=== PATIENT | female | born 1985 | race African-American/Black ===

== ENCOUNTER 2019-03-14 07:19 | Inpatient (IN) | payer OTHER ==
[2019-03-14] MEDS: HYDROmorphONE 2 MG/ML SYG IV (08:07)
[2019-03-14] MEDS: ALPRAZOLAM 1 MG TAB PO ×2 (08:07→15:50)
[2019-03-14 08:49] LABS: PARTIAL THROMBOPLASTIN TIME 44.5 Sec (23.0-35.0)
[2019-03-14 10:36] LABS: ADD MAN DIFF? NO
[2019-03-14 10:41] LABS: WHITE BLOOD COUNT 8.1 10^3/ul (4.8-10.8)
[2019-03-14 10:41] LABS: BASOPHILS % 0.5 % (0.0-2.0); EOSINOPHILS # 0.1 10^3/ul (0.0-0.5); EOSINOPHILS % 1.2 % (0.0-7.0); HEMATOCRIT 32.4 % (37.0-47.0); HEMOGLOBIN 10.3 g/dl (12.0-16.0); LYMPHOCYTES # 2.7 10^3/ul (0.8-2.9); LYMPHOCYTES % 32.8 % (15.0-51.0); MEAN CORPUSCULAR HEMOGLOBIN 28.1 pg (29.0-33.0); MEAN CORPUSCULAR HGB CONC 31.8 g/dl (32.0-37.0); MEAN CORPUSCULAR VOLUME 88.5 fl (82.0-101.0); MEAN PLATELET VOLUME 9.2 fl (7.4-10.4); MONOCYTE # 0.8 10^3/ul (0.3-0.9); MONOCYTES % 9.7 % (0.0-11.0); NEUTROPHIL # 4.5 10^3/ul (1.6-7.5); NEUTROPHILS % 55.6 % (39.0-77.0); PLATELET COUNT 270 10^3/UL (140-415); RED BLOOD COUNT 3.66 10^6/ul (4.20-5.40); RED CELL DISTRIBUTION WIDTH 14.7 % (11.5-14.5)
[2019-03-14] MEDS: morphine 2 MG INJ IV ×2 (11:43→20:20)
[2019-03-14 11:49] LABS: INR 0.95; PROTIME 12.8 Sec (11.9-14.9)
[2019-03-14 11:50] LABS: PARTIAL THROMBOPLASTIN TIME 36.5 Sec (23.0-35.0)
[2019-03-14] MEDS: HEPARIN 1000 UNITS/ML 10 ML INJ IV ×2 (12:07→19:11)
[2019-03-14] MEDS: HYDROmorphONE 1 MG/ML SYG IV (13:58)
[2019-03-14] MEDS ORDERED: BISACODYL 10 MG SUPP PR (14:00)
[2019-03-14] MEDS ORDERED: DOCUSATE SODIUM 100 MG CAP PO (14:00)
[2019-03-14] MEDS ORDERED: HYDROCODONE/APAP (5/325) TAB PO (14:00)
[2019-03-14] MEDS ORDERED: MAGNESIUM HYDROXIDE 30ML CUP PO (14:00)
[2019-03-14] MEDS: CEFAZOLIN 2 GM/50 ML (PMX) 50 ML IVPB ×2 (14:21→23:18)
[2019-03-14] MEDS: HEPARIN 25000 UNITS/250 ML 250 ML IV (14:40)
[2019-03-14] MEDS: HYDROCODONE/APAP (5/325) TAB PO ×2 (15:50→21:43)
[2019-03-14 17:10] LABS: ERYTHROCYTE SEDIMENTATION RATE 60 mm/Hr (0-20)
[2019-03-14 17:23] LABS: PARTIAL THROMBOPLASTIN TIME > 180.0 Sec (23.0-35.0)
[2019-03-14 18:05] LABS: PARTIAL THROMBOPLASTIN TIME 54.9 Sec (23.0-35.0)
[2019-03-14] MEDS: HYDROmorphONE 0.5 MG/0.5 ML SYG IV ×2 (18:49→22:51)
[2019-03-15 01:12] LABS: PARTIAL THROMBOPLASTIN TIME 91.8 Sec (23.0-35.0)
[2019-03-15] MEDS: CEFAZOLIN 2 GM/50 ML (PMX) 50 ML IVPB ×3 (05:18→21:02)
[2019-03-15] MEDS: PANTOPRAZOLE 40 MG INJ IV (05:19)
[2019-03-15] MEDS: HYDROmorphONE 0.5 MG/0.5 ML SYG IV ×4 (06:07→19:44)
[2019-03-15] MEDS: HEPARIN 25000 UNITS/250 ML 250 ML IV (06:25)
[2019-03-15] MEDS: HYDROCODONE/APAP (5/325) TAB PO ×2 (06:43→21:03)
[2019-03-15 06:46] LABS: ADD MAN DIFF? NO
[2019-03-15 06:49] LABS: WHITE BLOOD COUNT 7.5 10^3/ul (4.8-10.8)
[2019-03-15 06:49] LABS: BASOPHILS % 0.4 % (0.0-2.0); EOSINOPHILS # 0.1 10^3/ul (0.0-0.5); EOSINOPHILS % 1.6 % (0.0-7.0); HEMATOCRIT 31.1 % (37.0-47.0); HEMOGLOBIN 9.8 g/dl (12.0-16.0); LYMPHOCYTES # 1.9 10^3/ul (0.8-2.9); MEAN CORPUSCULAR HEMOGLOBIN 27.9 pg (29.0-33.0); MEAN CORPUSCULAR HGB CONC 31.5 g/dl (32.0-37.0); MEAN CORPUSCULAR VOLUME 88.6 fl (82.0-101.0); MEAN PLATELET VOLUME 9.8 fl (7.4-10.4); MONOCYTE # 0.6 10^3/ul (0.3-0.9); MONOCYTES % 7.9 % (0.0-11.0); NEUTROPHIL # 4.8 10^3/ul (1.6-7.5); NEUTROPHILS % 63.8 % (39.0-77.0); PLATELET COUNT 292 10^3/UL (140-415); RED BLOOD COUNT 3.51 10^6/ul (4.20-5.40); RED CELL DISTRIBUTION WIDTH 14.8 % (11.5-14.5)
[2019-03-15 07:00] LABS: HEMOGLOBIN A1C 4.9 % (0-5.9)
[2019-03-15 07:11] LABS: ALANINE AMINOTRANSFERASE 21 IU/L (13-69); ALBUMIN 3.2 g/dl (3.3-4.9); ALBUMIN/GLOBULIN RATIO 0.91; ALKALINE PHOSPHATASE 125 IU/L (42-121); ANION GAP 7 (5-13); ASPARTATE AMINO TRANSFERASE 41 IU/L (15-46); BILIRUBIN,INDIRECT 0.3 mg/dl (0-1.1); BILIRUBIN,TOTAL 0.3 mg/dl (0.2-1.3); BLOOD UREA NITROGEN 13 mg/dl (7-20); CALCIUM 8.8 mg/dl (8.4-10.2); CARBON DIOXIDE 28 mmol/L (21-31); CHLORIDE 104 mmol/L (97-110); CHOL/HDL RATIO 3.8 RATIO; CHOLESTEROL 179 mg/dl (100-200); CREATININE 0.47 mg/dl (0.44-1.00); Estimated GFR > 60 mL/min (>60); GLUCOSE 100 mg/dl (70-220); HDL CHOLESTEROL 47 mg/dl (34-82); LDL CHOLESTEROL,CALCULATED 115 mg/dl; MAGNESIUM 1.8 mg/dl (1.7-2.5); POTASSIUM 4.2 mmol/L (3.5-5.1); SODIUM 139 mmol/L (135-144); TOTAL PROTEIN 6.7 g/dl (6.1-8.1); TRIGLYCERIDES 84 mg/dl (0-149)
[2019-03-15 07:28] LABS: FREE THYROXINE INDEX (Calc) 3.65 ug/ml (0.65-3.89); T3 UPTAKE 39.7 % (23.5-40.5); T4 (THYROXINE) 9.2 ug/dl (5.5-11.0)
[2019-03-15] MEDS: ALPRAZOLAM 1 MG TAB PO ×2 (07:38→21:51)
[2019-03-15 07:41] LABS: THYROID STIMULATING HORMONE 0.733 MIU/L (0.465-4.680)
[2019-03-15 12:52] LABS: AMPHETAMINE/METHAMPHETAMINE Negative (NEGATIVE); BARBITURATES Negative (NEGATIVE); BENZODIAZEPINES Positive (NEGATIVE); CANNABINOIDS Positive (NEGATIVE); COCAINE Negative (NEGATIVE)
[2019-03-15 12:53] LABS: OPIATES Positive (NEGATIVE)
[2019-03-15 16:42] LABS: PARTIAL THROMBOPLASTIN TIME > 180.0 Sec (23.0-35.0)
[2019-03-15] MEDS: morphine 2 MG INJ IV (17:57)
[2019-03-15 20:11] LABS: PARTIAL THROMBOPLASTIN TIME 37.6 Sec (23.0-35.0)
[2019-03-15 21:53] LABS: PARTIAL THROMBOPLASTIN TIME 33.1 Sec (23.0-35.0)
[2019-03-15] MEDS: ALTEPLASE (CATHFLO) 2 MG INJ CATHETER (23:34)
[2019-03-16] MEDS: HYDROmorphONE 0.5 MG/0.5 ML SYG IV ×6 (00:28→22:13)
[2019-03-16] MEDS: HEPARIN 25000 UNITS/250 ML 250 ML IV ×3 (01:08→22:19)
[2019-03-16 01:49] LABS: TROPONIN-I < 0.012 ng/ml (0.000-0.120)
[2019-03-16] MEDS: HYDROCODONE/APAP (5/325) TAB PO ×3 (02:57→20:51)
[2019-03-16] MEDS: CEFAZOLIN 2 GM/50 ML (PMX) 50 ML IVPB ×3 (05:10→22:01)
[2019-03-16] MEDS: PANTOPRAZOLE 40 MG INJ IV (05:10)
[2019-03-16 06:22] LABS: ADD MAN DIFF? NO
[2019-03-16 06:34] LABS: BASOPHILS % 0.5 % (0.0-2.0); EOSINOPHILS # 0.1 10^3/ul (0.0-0.5); EOSINOPHILS % 2.3 % (0.0-7.0); HEMATOCRIT 29.4 % (37.0-47.0); HEMOGLOBIN 9.4 g/dl (12.0-16.0); LYMPHOCYTES # 2.1 10^3/ul (0.8-2.9); LYMPHOCYTES % 34.1 % (15.0-51.0); MEAN CORPUSCULAR HEMOGLOBIN 28.1 pg (29.0-33.0); MEAN PLATELET VOLUME 9.4 fl (7.4-10.4); MONOCYTE # 0.5 10^3/ul (0.3-0.9); MONOCYTES % 7.8 % (0.0-11.0); NEUTROPHIL # 3.3 10^3/ul (1.6-7.5); NEUTROPHILS % 54.8 % (39.0-77.0); PLATELET COUNT 271 10^3/UL (140-415); RED BLOOD COUNT 3.34 10^6/ul (4.20-5.40); RED CELL DISTRIBUTION WIDTH 14.5 % (11.5-14.5)
[2019-03-16 06:53] LABS: MAGNESIUM 1.8 mg/dl (1.7-2.5)
[2019-03-16 06:53] LABS: PHOSPHORUS 4.9 mg/dl (2.5-4.9)
[2019-03-16 06:58] LABS: ANION GAP 7 (5-13); BLOOD UREA NITROGEN 13 mg/dl (7-20); CALCIUM 8.4 mg/dl (8.4-10.2); CARBON DIOXIDE 27 mmol/L (21-31); CHLORIDE 104 mmol/L (97-110); CREATININE 0.59 mg/dl (0.44-1.00); Estimated GFR > 60 mL/min (>60); GLUCOSE 146 mg/dl (70-220); SODIUM 138 mmol/L (135-144)
[2019-03-16 07:06] LABS: TROPONIN-I < 0.012 ng/ml (0.000-0.120)
[2019-03-16 10:39] LABS: PARTIAL THROMBOPLASTIN TIME > 180.0 Sec (23.0-35.0)
[2019-03-16] MEDS: ALPRAZOLAM 1 MG TAB PO ×2 (11:12→20:50)
[2019-03-16 12:26] LABS: IRON 30 ug/dl (35-150)
[2019-03-16 12:35] LABS: % IRON SATURATION 12 % SAT (22-52); TOTAL IRON BINDING CAPACITY 244 ug/dl (241-421)
[2019-03-16 13:02] LABS: FERRITIN 81.4 ng/ml (6.2-137.0)
[2019-03-16 14:36] LABS: PARTIAL THROMBOPLASTIN TIME 35.9 Sec (23.0-35.0)
[2019-03-16 14:46] LABS: TROPONIN-I < 0.012 ng/ml (0.000-0.120)
[2019-03-16 23:10] LABS: PARTIAL THROMBOPLASTIN TIME 99.2 Sec (23.0-35.0)
[2019-03-17] MEDS: morphine 2 MG INJ IV ×5 (01:37→22:43)
[2019-03-17] MEDS: HYDROmorphONE 0.5 MG/0.5 ML SYG IV ×5 (04:15→21:08)
[2019-03-17] MEDS: CEFAZOLIN 2 GM/50 ML (PMX) 50 ML IVPB ×3 (06:04→21:54)
[2019-03-17] MEDS: PANTOPRAZOLE (EC) 40 MG TAB PO (06:04)
[2019-03-17] MEDS: HYDROCODONE/APAP (5/325) TAB PO (06:05)
[2019-03-17 06:52] LABS: ADD MAN DIFF? NO
[2019-03-17 06:57] LABS: WHITE BLOOD COUNT 7.1 10^3/ul (4.8-10.8)
[2019-03-17 06:57] LABS: BASOPHILS % 0.6 % (0.0-2.0); EOSINOPHILS # 0.2 10^3/ul (0.0-0.5); EOSINOPHILS % 2.7 % (0.0-7.0); HEMATOCRIT 27.9 % (37.0-47.0); HEMOGLOBIN 8.6 g/dl (12.0-16.0); LYMPHOCYTES # 2.7 10^3/ul (0.8-2.9); LYMPHOCYTES % 38.9 % (15.0-51.0); MEAN CORPUSCULAR HEMOGLOBIN 27.6 pg (29.0-33.0); MEAN CORPUSCULAR HGB CONC 30.8 g/dl (32.0-37.0); MEAN CORPUSCULAR VOLUME 89.4 fl (82.0-101.0); MEAN PLATELET VOLUME 9.5 fl (7.4-10.4); MONOCYTE # 0.5 10^3/ul (0.3-0.9); MONOCYTES % 7.1 % (0.0-11.0); NEUTROPHIL # 3.6 10^3/ul (1.6-7.5); NEUTROPHILS % 50.6 % (39.0-77.0); PLATELET COUNT 290 10^3/UL (140-415); RED BLOOD COUNT 3.12 10^6/ul (4.20-5.40); RED CELL DISTRIBUTION WIDTH 14.6 % (11.5-14.5)
[2019-03-17 07:18] LABS: MAGNESIUM 1.7 mg/dl (1.7-2.5)
[2019-03-17 07:18] LABS: PHOSPHORUS 4.5 mg/dl (2.5-4.9)
[2019-03-17 07:20] LABS: ANION GAP 7 (5-13); BLOOD UREA NITROGEN 12 mg/dl (7-20); CALCIUM 8.7 mg/dl (8.4-10.2); CARBON DIOXIDE 27 mmol/L (21-31); CHLORIDE 106 mmol/L (97-110); CREATININE 0.59 mg/dl (0.44-1.00); Estimated GFR > 60 mL/min (>60); GLUCOSE 95 mg/dl (70-220); POTASSIUM 4.2 mmol/L (3.5-5.1); SODIUM 140 mmol/L (135-144)
[2019-03-17 07:39] LABS: PARTIAL THROMBOPLASTIN TIME 89.6 Sec (23.0-35.0)
[2019-03-17] MEDS: ALPRAZOLAM 1 MG TAB PO ×2 (09:35→21:54)
[2019-03-17 10:10] LABS: PROTEIN C 79 % normal (70-180)
[2019-03-17] MEDS: HYDROCODONE/APAP (10/325) TAB PO ×2 (14:35→18:40)
[2019-03-17] MEDS: APIXABAN 5 MG TABLET PO (21:01)
[2019-03-18] MEDS: HYDROCODONE/APAP (10/325) TAB PO ×2 (00:38→19:50)
[2019-03-18] MEDS: HYDROmorphONE 0.5 MG/0.5 ML SYG IV ×5 (01:31→23:15)
[2019-03-18 05:09] LABS: ADD MAN DIFF? NO
[2019-03-18 05:10] LABS: BASOPHILS % 0.5 % (0.0-2.0); EOSINOPHILS # 0.1 10^3/ul (0.0-0.5); EOSINOPHILS % 2.4 % (0.0-7.0); HEMATOCRIT 29.9 % (37.0-47.0); HEMOGLOBIN 9.2 g/dl (12.0-16.0); LYMPHOCYTES # 2.2 10^3/ul (0.8-2.9); LYMPHOCYTES % 38.6 % (15.0-51.0); MEAN CORPUSCULAR HEMOGLOBIN 27.3 pg (29.0-33.0); MEAN CORPUSCULAR HGB CONC 30.8 g/dl (32.0-37.0); MEAN CORPUSCULAR VOLUME 88.7 fl (82.0-101.0); MEAN PLATELET VOLUME 9.3 fl (7.4-10.4); MONOCYTE # 0.5 10^3/ul (0.3-0.9); MONOCYTES % 8.3 % (0.0-11.0); NEUTROPHIL # 2.9 10^3/ul (1.6-7.5); NEUTROPHILS % 49.9 % (39.0-77.0); PLATELET COUNT 288 10^3/UL (140-415); RED BLOOD COUNT 3.37 10^6/ul (4.20-5.40); RED CELL DISTRIBUTION WIDTH 14.4 % (11.5-14.5)
[2019-03-18 05:10] LABS: WHITE BLOOD COUNT 5.8 10^3/ul (4.8-10.8)
[2019-03-18 05:27] LABS: MAGNESIUM 1.7 mg/dl (1.7-2.5)
[2019-03-18 05:27] LABS: PHOSPHORUS 4.5 mg/dl (2.5-4.9)
[2019-03-18 05:29] LABS: PARTIAL THROMBOPLASTIN TIME 36.4 Sec (23.0-35.0)
[2019-03-18 05:34] LABS: ANION GAP 8 (5-13); BLOOD UREA NITROGEN 11 mg/dl (7-20); CALCIUM 8.7 mg/dl (8.4-10.2); CARBON DIOXIDE 28 mmol/L (21-31); CHLORIDE 104 mmol/L (97-110); CREATININE 0.58 mg/dl (0.44-1.00); Estimated GFR > 60 mL/min (>60); GLUCOSE 98 mg/dl (70-220); POTASSIUM 3.7 mmol/L (3.5-5.1); SODIUM 140 mmol/L (135-144)
[2019-03-18] MEDS: CEFAZOLIN 2 GM/50 ML (PMX) 50 ML IVPB ×3 (06:02→21:12)
[2019-03-18] MEDS: PANTOPRAZOLE (EC) 40 MG TAB PO (06:02)
[2019-03-18] MEDS: ALPRAZOLAM 1 MG TAB PO ×2 (08:50→21:02)
[2019-03-18] MEDS: APIXABAN 5 MG TABLET PO ×2 (08:50→20:51)
[2019-03-18] MEDS: morphine 2 MG INJ IV ×3 (11:04→21:02)
[2019-03-18] MEDS: METOPROLOL 25 MG TAB PO (21:02)
[2019-03-19] MEDS: morphine 2 MG INJ IV ×6 (00:56→23:58)
[2019-03-19] MEDS: HYDROCODONE/APAP (10/325) TAB PO ×3 (02:40→20:52)
[2019-03-19] MEDS: HYDROmorphONE 0.5 MG/0.5 ML SYG IV ×5 (03:11→22:05)
[2019-03-19] MEDS: CEFAZOLIN 2 GM/50 ML (PMX) 50 ML IVPB ×3 (05:14→22:05)
[2019-03-19] MEDS: PANTOPRAZOLE (EC) 40 MG TAB PO (05:14)
[2019-03-19] MEDS: APIXABAN 5 MG TABLET PO ×2 (08:49→20:54)
[2019-03-19] MEDS: METOPROLOL 25 MG TAB PO ×2 (08:50→20:53)
[2019-03-19] MEDS: ALPRAZOLAM 1 MG TAB PO (20:52)
[2019-03-20] MEDS: HYDROCODONE/APAP (10/325) TAB PO ×4 (01:04→20:32)
[2019-03-20] MEDS: HYDROmorphONE 0.5 MG/0.5 ML SYG IV ×6 (02:19→23:44)
[2019-03-20] MEDS: CEFAZOLIN 2 GM/50 ML (PMX) 50 ML IVPB ×3 (06:22→21:59)
[2019-03-20] MEDS: PANTOPRAZOLE (EC) 40 MG TAB PO (06:22)
[2019-03-20] MEDS: ALPRAZOLAM 1 MG TAB PO ×2 (06:31→20:32)
[2019-03-20 06:59] LABS: ADD MAN DIFF? NO
[2019-03-20 07:01] LABS: WHITE BLOOD COUNT 5.6 10^3/ul (4.8-10.8)
[2019-03-20 07:01] LABS: BASOPHILS % 0.5 % (0.0-2.0); EOSINOPHILS # 0.1 10^3/ul (0.0-0.5); EOSINOPHILS % 2.5 % (0.0-7.0); HEMATOCRIT 30.6 % (37.0-47.0); HEMOGLOBIN 9.1 g/dl (12.0-16.0); LYMPHOCYTES # 2.6 10^3/ul (0.8-2.9); LYMPHOCYTES % 45.9 % (15.0-51.0); MEAN CORPUSCULAR HEMOGLOBIN 27.5 pg (29.0-33.0); MEAN CORPUSCULAR HGB CONC 29.7 g/dl (32.0-37.0); MEAN CORPUSCULAR VOLUME 92.4 fl (82.0-101.0); MEAN PLATELET VOLUME 9.7 fl (7.4-10.4); MONOCYTE # 0.4 10^3/ul (0.3-0.9); MONOCYTES % 7.9 % (0.0-11.0); NEUTROPHIL # 2.4 10^3/ul (1.6-7.5); NEUTROPHILS % 42.8 % (39.0-77.0); PLATELET COUNT 297 10^3/UL (140-415); RED BLOOD COUNT 3.31 10^6/ul (4.20-5.40); RED CELL DISTRIBUTION WIDTH 14.6 % (11.5-14.5)
[2019-03-20] MEDS: morphine 2 MG INJ IV ×4 (07:41→22:56)
[2019-03-20 08:33] LABS: ANION GAP 7 (5-13); BLOOD UREA NITROGEN 15 mg/dl (7-20); CALCIUM 8.8 mg/dl (8.4-10.2); CARBON DIOXIDE 27 mmol/L (21-31); CHLORIDE 107 mmol/L (97-110); CREATININE 0.53 mg/dl (0.44-1.00); Estimated GFR > 60 mL/min (>60); GLUCOSE 101 mg/dl (70-220); MAGNESIUM 1.5 mg/dl (1.7-2.5); SODIUM 141 mmol/L (135-144)
[2019-03-20] MEDS: APIXABAN 5 MG TABLET PO ×2 (08:37→20:32)
[2019-03-20] MEDS: METOPROLOL 25 MG TAB PO ×2 (08:38→20:34)
[2019-03-20] MEDS: MAGNESIUM SULFATE 2 GM/50 ML 50 ML IVPB (10:16)
[2019-03-21] MEDS: HYDROCODONE/APAP (10/325) TAB PO ×5 (00:31→20:42)
[2019-03-21] MEDS: morphine 2 MG INJ IV ×5 (02:49→23:27)
[2019-03-21] MEDS: HYDROmorphONE 1 MG/ML SYG IV (03:30)
[2019-03-21] MEDS: HYDROmorphONE 0.5 MG/0.5 ML SYG IV ×5 (04:05→22:35)
[2019-03-21] MEDS: NACL 0.9% 3 ML SYG IV (04:07)
[2019-03-21 04:58] LABS: ADD MAN DIFF? NO
[2019-03-21 05:18] LABS: BASOPHILS % 0.6 % (0.0-2.0); EOSINOPHILS # 0.1 10^3/ul (0.0-0.5); EOSINOPHILS % 1.7 % (0.0-7.0); HEMATOCRIT 29.7 % (37.0-47.0); HEMOGLOBIN 8.9 g/dl (12.0-16.0); LYMPHOCYTES # 2.4 10^3/ul (0.8-2.9); LYMPHOCYTES % 47.2 % (15.0-51.0); MEAN CORPUSCULAR HEMOGLOBIN 27.7 pg (29.0-33.0); MEAN CORPUSCULAR VOLUME 92.5 fl (82.0-101.0); MEAN PLATELET VOLUME 9.7 fl (7.4-10.4); MONOCYTE # 0.5 10^3/ul (0.3-0.9); MONOCYTES % 8.9 % (0.0-11.0); NEUTROPHIL # 2.1 10^3/ul (1.6-7.5); NEUTROPHILS % 41.2 % (39.0-77.0); PLATELET COUNT 295 10^3/UL (140-415); RED BLOOD COUNT 3.21 10^6/ul (4.20-5.40); RED CELL DISTRIBUTION WIDTH 14.6 % (11.5-14.5)
[2019-03-21 05:18] LABS: WHITE BLOOD COUNT 5.2 10^3/ul (4.8-10.8)
[2019-03-21 05:40] LABS: ANION GAP 5 (5-13); BLOOD UREA NITROGEN 15 mg/dl (7-20); CALCIUM 8.8 mg/dl (8.4-10.2); CARBON DIOXIDE 29 mmol/L (21-31); CHLORIDE 104 mmol/L (97-110); CREATININE 0.56 mg/dl (0.44-1.00); Estimated GFR > 60 mL/min (>60); GLUCOSE 92 mg/dl (70-220); POTASSIUM 4.6 mmol/L (3.5-5.1); SODIUM 138 mmol/L (135-144)
[2019-03-21 05:57] LABS: MAGNESIUM 1.7 mg/dl (1.7-2.5)
[2019-03-21 05:57] LABS: PHOSPHORUS 4.4 mg/dl (2.5-4.9)
[2019-03-21] MEDS: PANTOPRAZOLE (EC) 40 MG TAB PO (06:09)
[2019-03-21] MEDS: CEFAZOLIN 2 GM/50 ML (PMX) 50 ML IVPB ×3 (06:10→21:43)
[2019-03-21] MEDS: ALPRAZOLAM 1 MG TAB PO ×2 (08:16→20:41)
[2019-03-21] MEDS: APIXABAN 5 MG TABLET PO ×2 (08:17→20:42)
[2019-03-21] MEDS: METOPROLOL 25 MG TAB PO ×2 (08:17→20:42)
[2019-03-21] MEDS: ALTEPLASE (CATHFLO) 2 MG INJ CATHETER (21:43)
[2019-03-22] MEDS: ALTEPLASE (CATHFLO) 2 MG INJ CATHETER ×2 (00:05→22:54)
[2019-03-22] MEDS: HYDROCODONE/APAP (10/325) TAB PO ×5 (00:46→18:24)
[2019-03-22] MEDS: HYDROmorphONE 0.5 MG/0.5 ML SYG IV ×5 (02:34→20:23)
[2019-03-22] MEDS: morphine 2 MG INJ IV ×5 (03:27→21:45)
[2019-03-22 05:26] LABS: ADD MAN DIFF? NO
[2019-03-22 05:29] LABS: WHITE BLOOD COUNT 5.1 10^3/ul (4.8-10.8)
[2019-03-22 05:29] LABS: BASOPHILS % 0.6 % (0.0-2.0); EOSINOPHILS # 0.1 10^3/ul (0.0-0.5); EOSINOPHILS % 2.1 % (0.0-7.0); HEMOGLOBIN 8.7 g/dl (12.0-16.0); LYMPHOCYTES # 2.3 10^3/ul (0.8-2.9); LYMPHOCYTES % 45.3 % (15.0-51.0); MEAN CORPUSCULAR HEMOGLOBIN 28.2 pg (29.0-33.0); MEAN CORPUSCULAR HGB CONC 31.1 g/dl (32.0-37.0); MEAN CORPUSCULAR VOLUME 90.9 fl (82.0-101.0); MEAN PLATELET VOLUME 9.8 fl (7.4-10.4); MONOCYTE # 0.5 10^3/ul (0.3-0.9); MONOCYTES % 8.8 % (0.0-11.0); NEUTROPHIL # 2.2 10^3/ul (1.6-7.5); NEUTROPHILS % 42.8 % (39.0-77.0); PLATELET COUNT 316 10^3/UL (140-415); RED BLOOD COUNT 3.08 10^6/ul (4.20-5.40); RED CELL DISTRIBUTION WIDTH 14.5 % (11.5-14.5)
[2019-03-22 06:16] LABS: PHOSPHORUS 4.6 mg/dl (2.5-4.9)
[2019-03-22 06:16] LABS: MAGNESIUM 1.6 mg/dl (1.7-2.5)
[2019-03-22 06:23] LABS: ANION GAP 7 (5-13); BLOOD UREA NITROGEN 13 mg/dl (7-20); CALCIUM 8.8 mg/dl (8.4-10.2); CARBON DIOXIDE 28 mmol/L (21-31); CHLORIDE 105 mmol/L (97-110); CREATININE 0.54 mg/dl (0.44-1.00); Estimated GFR > 60 mL/min (>60); GLUCOSE 109 mg/dl (70-220); SODIUM 140 mmol/L (135-144)
[2019-03-22] MEDS: CEFAZOLIN 2 GM/50 ML (PMX) 50 ML IVPB ×3 (06:38→22:00)
[2019-03-22] MEDS: PANTOPRAZOLE (EC) 40 MG TAB PO (06:38)
[2019-03-22] MEDS: ACETAMINOPHEN 325 MG TAB PO (08:48)
[2019-03-22] MEDS: ALPRAZOLAM 1 MG TAB PO ×2 (08:48→16:36)
[2019-03-22] MEDS: APIXABAN 5 MG TABLET PO (08:49)
[2019-03-22] MEDS: METOPROLOL 25 MG TAB PO ×2 (08:49→20:36)
[2019-03-22 10:59] LABS: ADD MAN DIFF? NO
[2019-03-22 11:09] LABS: BASOPHILS % 0.8 % (0.0-2.0); EOSINOPHILS # 0.1 10^3/ul (0.0-0.5); EOSINOPHILS % 2.2 % (0.0-7.0); HEMATOCRIT 29.8 % (37.0-47.0); LYMPHOCYTES # 2.1 10^3/ul (0.8-2.9); LYMPHOCYTES % 42.2 % (15.0-51.0); MEAN CORPUSCULAR HEMOGLOBIN 27.9 pg (29.0-33.0); MEAN CORPUSCULAR HGB CONC 30.2 g/dl (32.0-37.0); MEAN CORPUSCULAR VOLUME 92.3 fl (82.0-101.0); MEAN PLATELET VOLUME 9.5 fl (7.4-10.4); MONOCYTE # 0.5 10^3/ul (0.3-0.9); NEUTROPHIL # 2.3 10^3/ul (1.6-7.5); NEUTROPHILS % 45.4 % (39.0-77.0); PLATELET COUNT 312 10^3/UL (140-415); RED BLOOD COUNT 3.23 10^6/ul (4.20-5.40); RED CELL DISTRIBUTION WIDTH 14.6 % (11.5-14.5)
[2019-03-22 11:17] LABS: ANION GAP 8 (5-13); BLOOD UREA NITROGEN 12 mg/dl (7-20); CALCIUM 8.7 mg/dl (8.4-10.2); CARBON DIOXIDE 27 mmol/L (21-31); CHLORIDE 105 mmol/L (97-110); CREATININE 0.52 mg/dl (0.44-1.00); Estimated GFR > 60 mL/min (>60); GLUCOSE 114 mg/dl (70-220); POTASSIUM 4.3 mmol/L (3.5-5.1); SODIUM 140 mmol/L (135-144)
[2019-03-22] MEDS: MAGNESIUM SULFATE 2 GM/50 ML 50 ML IVPB (12:25)
[2019-03-22] MEDS ORDERED: HEPARIN 1000 UNITS/ML 10 ML INJ IV (14:30)
[2019-03-22] MEDS: DOXYCYCLINE 100 MG TAB PO ×2 (15:53→20:23)
[2019-03-22] MEDS: HEPARIN 1000 UNITS/ML 10 ML INJ IV (15:54)
[2019-03-22 16:47] LABS: ADD MAN DIFF? NO
[2019-03-22 16:49] LABS: BASOPHILS % 0.7 % (0.0-2.0); EOSINOPHILS # 0.1 10^3/ul (0.0-0.5); EOSINOPHILS % 2.4 % (0.0-7.0); HEMATOCRIT 30.7 % (37.0-47.0); HEMOGLOBIN 9.4 g/dl (12.0-16.0); LYMPHOCYTES # 2.8 10^3/ul (0.8-2.9); LYMPHOCYTES % 47.9 % (15.0-51.0); MEAN CORPUSCULAR HEMOGLOBIN 28.2 pg (29.0-33.0); MEAN CORPUSCULAR HGB CONC 30.6 g/dl (32.0-37.0); MEAN CORPUSCULAR VOLUME 92.2 fl (82.0-101.0); MEAN PLATELET VOLUME 9.4 fl (7.4-10.4); MONOCYTE # 0.4 10^3/ul (0.3-0.9); MONOCYTES % 7.4 % (0.0-11.0); NEUTROPHIL # 2.5 10^3/ul (1.6-7.5); NEUTROPHILS % 41.4 % (39.0-77.0); PLATELET COUNT 334 10^3/UL (140-415); RED BLOOD COUNT 3.33 10^6/ul (4.20-5.40); RED CELL DISTRIBUTION WIDTH 14.6 % (11.5-14.5)
[2019-03-22 16:49] LABS: WHITE BLOOD COUNT 5.9 10^3/ul (4.8-10.8)
[2019-03-22 17:10] LABS: INR 1.15; PROTIME 14.8 Sec (11.9-14.9); PT RATIO 1.2
[2019-03-22] MEDS: SUMATRIPTAN 50 MG TAB PO (17:16)
[2019-03-22 17:39] LABS: PARTIAL THROMBOPLASTIN TIME > 180.0 Sec (23.0-35.0)
[2019-03-23] MEDS: HYDROmorphONE 0.5 MG/0.5 ML SYG IV ×6 (00:53→20:54)
[2019-03-23] MEDS: ALPRAZOLAM 1 MG TAB PO ×3 (00:53→21:39)
[2019-03-23] MEDS: PANTOPRAZOLE (EC) 40 MG TAB PO (05:03)
[2019-03-23] MEDS: CEFAZOLIN 2 GM/50 ML (PMX) 50 ML IVPB ×3 (05:16→21:39)
[2019-03-23] MEDS: ALTEPLASE (CATHFLO) 2 MG INJ CATHETER ×2 (09:08→09:15)
[2019-03-23] MEDS: DOXYCYCLINE 100 MG TAB PO ×2 (09:23→20:53)
[2019-03-23] MEDS: METOPROLOL 25 MG TAB PO ×2 (09:23→20:53)
[2019-03-23] MEDS: morphine 2 MG INJ IV ×2 (10:17→12:48)
[2019-03-23] MEDS: HYDROCODONE/APAP (10/325) TAB PO ×2 (10:18→14:41)
[2019-03-23 10:48] LABS: PARTIAL THROMBOPLASTIN TIME 28.3 Sec (23.0-35.0)
[2019-03-23 10:53] LABS: MAGNESIUM 1.5 mg/dl (1.7-2.5)
[2019-03-23] MEDS ORDERED: CLOTRIMAZOLE 1% 30 GM CR TOP (11:30)
[2019-03-23] MEDS: LIDOCAINE 1% (MPF) 5 ML VIAL SC (13:00)
[2019-03-23] MEDS: FLUCONAZOLE 100 MG TAB PO (13:40)
[2019-03-23] MEDS: HEPARIN 1000 UNITS/ML 10 ML INJ IV (17:36)
[2019-03-23] MEDS: HEPARIN 25000 UNITS/250 ML 250 ML IV (17:39)
[2019-03-23] MEDS: OXYCODONE/ACETAMINOPHEN (5/325) TAB PO (22:58)
[2019-03-24] MEDS: HYDROmorphONE 0.5 MG/0.5 ML SYG IV ×2 (00:28→07:39)
[2019-03-24 01:25] LABS: PARTIAL THROMBOPLASTIN TIME 76.8 Sec (23.0-35.0)
[2019-03-24] MEDS: PANTOPRAZOLE (EC) 40 MG TAB PO (05:22)
[2019-03-24] MEDS: HEPARIN 25000 UNITS/250 ML 250 ML IV ×2 (06:03→20:35)
[2019-03-24] MEDS: ALPRAZOLAM 1 MG TAB PO ×2 (08:34→20:52)
[2019-03-24] MEDS: DOXYCYCLINE 100 MG TAB PO ×2 (08:34→20:20)
[2019-03-24] MEDS: METOPROLOL 25 MG TAB PO ×2 (08:35→20:20)
[2019-03-24] MEDS: FLUCONAZOLE 100 MG TAB PO (08:35)
[2019-03-24] MEDS: OXYCODONE/ACETAMINOPHEN (5/325) TAB PO ×3 (09:39→22:21)
[2019-03-24 10:05] LABS: PARTIAL THROMBOPLASTIN TIME 71.7 Sec (23.0-35.0)
[2019-03-24] MEDS ORDERED: LIDOCAINE 1% (MDV) 20 ML INJ (11:26)
[2019-03-24] MEDS ORDERED: MIDAZOLAM 1 MG/ML 2 ML INJ (11:26)
[2019-03-24] MEDS ORDERED: IODIXANOL LOCM 100 ML BTL (11:26)
[2019-03-24] MEDS ORDERED: HEPARIN 1000 UNITS/NS (A-LINE) 1,000 ML (11:26)
[2019-03-24] MEDS ORDERED: FENTAnyl 50 MCG/ML VIAL ×2 (11:26→12:50)
[2019-03-24] MEDS: ALTEPLASE (CATHFLO) 2 MG INJ CATHETER (12:00)
[2019-03-24] MEDS ORDERED: ONDANSETRON 4 MG INJ (12:34)
[2019-03-24] MEDS: HYDROmorphONE 2 MG/ML SYG IV ×4 (13:55→23:22)
[2019-03-24] MEDS: ONDANSETRON 4 MG INJ IV (15:47)
[2019-03-24 16:34] LABS: PARTIAL THROMBOPLASTIN TIME 71.6 Sec (23.0-35.0)
[2019-03-25] MEDS: HYDROmorphONE 2 MG/ML SYG IV ×7 (02:24→21:05)
[2019-03-25] MEDS: OXYCODONE/ACETAMINOPHEN (5/325) TAB PO ×4 (04:37→23:12)
[2019-03-25 05:32] LABS: PARTIAL THROMBOPLASTIN TIME 53.9 Sec (23.0-35.0)
[2019-03-25] MEDS: PANTOPRAZOLE (EC) 40 MG TAB PO (05:42)
[2019-03-25] MEDS: ACETAMINOPHEN 325 MG TAB PO (07:56)
[2019-03-25] MEDS: DOXYCYCLINE 100 MG TAB PO (08:12)
[2019-03-25] MEDS: FLUCONAZOLE 100 MG TAB PO (08:12)
[2019-03-25] MEDS: APIXABAN 5 MG TABLET PO ×2 (08:12→21:13)
[2019-03-25] MEDS: ALPRAZOLAM 1 MG TAB PO ×2 (08:12→21:34)
[2019-03-25] MEDS: METOPROLOL 25 MG TAB PO ×2 (08:13→21:14)
[2019-03-25 11:07] LABS: ADD MAN DIFF? NO
[2019-03-25 11:09] LABS: BASOPHILS % 0.5 % (0.0-2.0); EOSINOPHILS # 0.1 10^3/ul (0.0-0.5); EOSINOPHILS % 1.4 % (0.0-7.0); HEMATOCRIT 29.6 % (37.0-47.0); LYMPHOCYTES # 2.6 10^3/ul (0.8-2.9); LYMPHOCYTES % 39.2 % (15.0-51.0); MEAN CORPUSCULAR HEMOGLOBIN 28.1 pg (29.0-33.0); MEAN CORPUSCULAR HGB CONC 30.4 g/dl (32.0-37.0); MEAN CORPUSCULAR VOLUME 92.5 fl (82.0-101.0); MEAN PLATELET VOLUME 10.9 fl (7.4-10.4); MONOCYTE # 0.5 10^3/ul (0.3-0.9); MONOCYTES % 7.4 % (0.0-11.0); NEUTROPHIL # 3.4 10^3/ul (1.6-7.5); NEUTROPHILS % 51.2 % (39.0-77.0); PLATELET COUNT 252 10^3/UL (140-415); RED CELL DISTRIBUTION WIDTH 14.6 % (11.5-14.5)
[2019-03-25 11:09] LABS: WHITE BLOOD COUNT 6.6 10^3/ul (4.8-10.8)
[2019-03-25 11:25] LABS: ANION GAP 7 (5-13); BLOOD UREA NITROGEN 15 mg/dl (7-20); CALCIUM 8.9 mg/dl (8.4-10.2); CARBON DIOXIDE 25 mmol/L (21-31); CHLORIDE 106 mmol/L (97-110); CREATININE 0.52 mg/dl (0.44-1.00); Estimated GFR > 60 mL/min (>60); GLUCOSE 104 mg/dl (70-220); POTASSIUM 4.1 mmol/L (3.5-5.1); SODIUM 138 mmol/L (135-144)
[2019-03-25 11:25] LABS: MAGNESIUM 1.5 mg/dl (1.7-2.5)
[2019-03-25] MEDS: MAGNESIUM SULFATE 2 GM/50 ML 50 ML IVPB (14:59)
[2019-03-25] MEDS: ACET/BUTAL/CAFF TAB PO (16:12)
[2019-03-25] MEDS ORDERED: APIXABAN 5 MG TABLET PO (21:00)
[2019-03-25] MEDS: TRIMETHOPRIM/SULFAMETHOX (DS) TAB PO (21:13)
[2019-03-26] MEDS: HYDROmorphONE 2 MG/ML SYG IV ×8 (00:10→23:43)
[2019-03-26] MEDS: PANTOPRAZOLE (EC) 40 MG TAB PO (07:07)
[2019-03-26] MEDS: OXYCODONE/ACETAMINOPHEN (5/325) TAB PO ×2 (08:42→19:38)
[2019-03-26] MEDS: TRIMETHOPRIM/SULFAMETHOX (DS) TAB PO ×2 (08:43→20:46)
[2019-03-26] MEDS: APIXABAN 5 MG TABLET PO ×2 (08:43→20:46)
[2019-03-26] MEDS: METOPROLOL 25 MG TAB PO ×2 (08:43→20:47)
[2019-03-26 10:13] LABS: ADD MAN DIFF? NO
[2019-03-26 10:15] LABS: WHITE BLOOD COUNT 5.6 10^3/ul (4.8-10.8)
[2019-03-26 10:15] LABS: BASOPHILS % 0.7 % (0.0-2.0); EOSINOPHILS # 0.1 10^3/ul (0.0-0.5); HEMATOCRIT 30.3 % (37.0-47.0); HEMOGLOBIN 9.1 g/dl (12.0-16.0); LYMPHOCYTES # 2.1 10^3/ul (0.8-2.9); LYMPHOCYTES % 37.2 % (15.0-51.0); MEAN CORPUSCULAR HEMOGLOBIN 27.5 pg (29.0-33.0); MEAN CORPUSCULAR VOLUME 91.5 fl (82.0-101.0); MEAN PLATELET VOLUME 10.4 fl (7.4-10.4); MONOCYTE # 0.5 10^3/ul (0.3-0.9); MONOCYTES % 9.6 % (0.0-11.0); NEUTROPHIL # 2.8 10^3/ul (1.6-7.5); PLATELET COUNT 191 10^3/UL (140-415); RED BLOOD COUNT 3.31 10^6/ul (4.20-5.40); RED CELL DISTRIBUTION WIDTH 14.8 % (11.5-14.5)
[2019-03-26 10:33] LABS: MAGNESIUM 1.7 mg/dl (1.7-2.5)
[2019-03-26 10:33] LABS: ANION GAP 6 (5-13); BLOOD UREA NITROGEN 15 mg/dl (7-20); CALCIUM 9.1 mg/dl (8.4-10.2); CARBON DIOXIDE 28 mmol/L (21-31); CHLORIDE 104 mmol/L (97-110); CREATININE 0.59 mg/dl (0.44-1.00); Estimated GFR > 60 mL/min (>60); GLUCOSE 88 mg/dl (70-220); POTASSIUM 4.5 mmol/L (3.5-5.1); SODIUM 138 mmol/L (135-144)
[2019-03-26] MEDS: ALPRAZOLAM 1 MG TAB PO (22:16)
[2019-03-26] MEDS: ACET/BUTAL/CAFF TAB PO (22:16)
[2019-03-27] MEDS: HYDROmorphONE 2 MG/ML SYG IV ×4 (02:42→14:17)
[2019-03-27] MEDS: PANTOPRAZOLE (EC) 40 MG TAB PO (06:39)
[2019-03-27] MEDS: OXYCODONE/ACETAMINOPHEN (5/325) TAB PO (06:39)
[2019-03-27] MEDS: APIXABAN 5 MG TABLET PO (09:40)
[2019-03-27] MEDS: METOPROLOL 25 MG TAB PO (09:40)
[2019-03-27] MEDS: TRIMETHOPRIM/SULFAMETHOX (DS) TAB PO (09:40)
[2019-03-27] MEDS: ALPRAZOLAM 1 MG TAB PO (09:44)
== END 2019-03-27 15:55 | disposition home or self-care (01) | DRG 271 ==
LOC: MS1 03-19 07:18 → E/R 07:19 → MS1 03-17 12:20 → TEL 10:07
PROVIDERS: Internal Medicine
PROC: 05C73ZZ Extirpation of Matter from Right Axillary Vein, Percutaneous Approach (ICD-10-PCS; principal; 2019-03-24 11:30)
PROC: 05C53ZZ Extirpation of Matter from Right Subclavian Vein, Percutaneous Approach (ICD-10-PCS; 2019-03-24 11:30)
PROC: 05C93ZZ Extirpation of Matter from Right Brachial Vein, Percutaneous Approach (ICD-10-PCS; 2019-03-24 11:30)
PROC: 05CB3ZZ Extirpation of Matter from Right Basilic Vein, Percutaneous Approach (ICD-10-PCS; 2019-03-24 11:30)
PROC: 02HV33Z Insertion of Infusion Device into Superior Vena Cava, Percutaneous Approach (ICD-10-PCS; 2019-03-24 11:30)
PROC: 3E03317 Introduction of Other Thrombolytic into Peripheral Vein, Percutaneous Approach (ICD-10-PCS; 2019-03-24 11:30)
DX: T82.868A Thrombosis due to vascular prosthetic devices, implants and grafts, initial encounter (principal); I82.A11 Acute embolism and thrombosis of right axillary vein; I82.B11 Acute embolism and thrombosis of right subclavian vein; I38 Endocarditis, valve unspecified; Z68.41 Body mass index [BMI] 40.0-44.9, adult; I82.621 Acute embolism and thrombosis of deep veins of right upper extremity; I82.611 Acute embolism and thrombosis of superficial veins of right upper extremity; L03.113 Cellulitis of right upper limb; E66.01 Morbid (severe) obesity due to excess calories; F41.9 Anxiety disorder, unspecified; D64.9 Anemia, unspecified; M19.90 Unspecified osteoarthritis, unspecified site; I10 Essential (primary) hypertension; Z86.711 Personal history of pulmonary embolism; F99 Mental disorder, not otherwise specified
CPT/HCPCS: 36569; 37211; 71045; 73590; 75820; 76641; 80048; 80053; 80061; 80307; 82728; 83036; 83540; 83735; 83890; 84100; 84436; 84443; 84479; 84484; 84703; 85025; 85300; 85302; 85305; 85610; 85651; 85730; 87040-91; 93005; 93306; 93971; 97116; 97162; 97530

== ENCOUNTER 2019-05-04 09:02 | Emergency (ER) | payer OTHER ==
[2019-05-04] MEDS: ENOXAPARIN 60 MG/0.6 ML SYG SC (12:41)
== END 2019-05-04 12:58 | disposition home or self-care (01) ==
LOC: FTE 09:02
DX: I82.621 Acute embolism and thrombosis of deep veins of right upper extremity (principal); Z76.0 Encounter for issue of repeat prescription
CPT/HCPCS: 81025; 93971; 96372; 99285-25

== ENCOUNTER 2019-05-16 19:51 | Emergency (ER) | payer OTHER ==
[2019-05-16] MEDS: HYDROCODONE/APAP (5/325) TAB PO (21:13)
[2019-05-16] MEDS: KETOROLAC 30 MG INJ IM (21:13)
== END 2019-05-16 23:02 | disposition home or self-care (01) ==
LOC: E/R 19:51
DX: M79.621 Pain in right upper arm (principal); I11.0 Hypertensive heart disease with heart failure; I50.9 Heart failure, unspecified; Z79.01 Long term (current) use of anticoagulants
CPT/HCPCS: 71045; 81025; 93971; 96372; 99285-25